=== PATIENT | male | born 1970 | race Caucasian/White ===

== ENCOUNTER 2023-05-03 13:07 | Inpatient (IN) ==
[2023-05-03] MEDS ORDERED: IOPAMIDOL 100 ML BOTTLE IV ONE (13:08)
[2023-05-03] MEDS ORDERED: 0.9 % SODIUM CHLORIDE 1,000 ML IV ONE (13:18)
[2023-05-03 14:11] LABS: Basophils # (Auto) 0.04 K/mcL (0.00-0.30); Basophils % (Auto) 0.5 % (0.0-2.0); Eosinophils # (Auto) 0.18 K/mcL (0.00-0.70); Eosinophils % (Auto) 2.3 % (0.0-7.0); Hematocrit 46.7 % (40.1-51.0); Hemoglobin 15.4 g/dL (13.7-17.5); Lymphocytes # (Auto) 1.92 K/mcL (1.50-4.80); Mean Cell Volume 83.1 fL (80.0-100.0); Mean Platelet Volume 11.5 fL (8.8-12.5); Monocytes % (Auto) 6.3 % (1.0-12.0); Neutrophils % (Auto) 66.3 % (38.0-78.0); Platelet Count 196 K/mcL (140-440); RBC 5.62 M/mcL (4.63-6.08); Red Cell Distribution Width 12.1 % (11.5-14.5)
[2023-05-03 14:42] LABS: Thyroid Stimulating Hormone 3.07 uIU/mL (0.27-5.01)
[2023-05-03] MEDS ORDERED: ASPIRIN 81 MG TAB.CHEW CHEWED ONE (15:02)
[2023-05-03 15:14] LABS: ALT/SGPT 16 U/L (<40); AST/SGOT 11 U/L (<40); Albumin/Globulin Ratio 1.5 (1.0-2.3); Alkaline Phosphatase 83 U/L (39-117); Bilirubin,Total 0.3 mg/dL (0.1-1.0); Blood Urea Nitrogen 16 mg/dL (6-20); Calcium 8.8 mg/dL (8.6-10.4); Carbon Dioxide 25 mmol/L (22-30); Chloride 102 mmol/L (96-108); Globulin 2.7 gm/dL (2.2-3.7); Glomerular Filtration Rate 101; Glucose 297 mg/dL (70-105)
[2023-05-03 15:52] LABS: ABG Methemoglobin 0.2 % (0.4-1.5); Total Hemoglobin 15.3 gm/Dl (13.5-16.5); VBG Base Excess -1 (-2-3); VBG HCO3 25.3 mmol/L (24.0-28.0); VBG Oxygen Saturation 77.7 % (40.0-70.0); VBG PCO2 50.1 mmHg (41.0-51.0); VBG PH 7.32 U (7.32-7.42); VBG PO2 47.2 mmHg (25.0-40.0); VBG Total CO2 26.8 mmol/L (25.0-29.0)
[2023-05-03] MEDS ORDERED: INSULIN REGULAR, HUMAN 1 UNIT/0.01 ML UNIT IV ONE (15:53)
[2023-05-03] MEDS ORDERED: CLOPIDOGREL 300 MG TABLET PO ONE (16:10)
[2023-05-03] MEDS ORDERED: DEXTROSE 31 GM ORAL.SUSP PO PRN (17:24)
[2023-05-03] MEDS ORDERED: POTASSIUM CHLORIDE 40 MEQ in DEXTROSE 5% IN WATER 500 ML IV PRN (17:24)
[2023-05-03] MEDS ORDERED: 0.9 % SODIUM CHLORIDE 1,000 ML IV SCH (17:24)
[2023-05-03] MEDS ORDERED: ONDANSETRON 4 MG/2 ML VIAL IV PRN (17:24)
[2023-05-03] MEDS ORDERED: POTASSIUM CHLORIDE 20 MEQ TABLET PO PRN ×2 (17:24)
[2023-05-03] MEDS ORDERED: SENNOSIDES 1 TABLET PO PRN (17:24)
[2023-05-03] MEDS ORDERED: hydrALAZINE 20 MG/ML VIAL IV PRN (17:24)
[2023-05-03] MEDS ORDERED: INSULIN LISPRO 1 UNIT/0.01 ML UNIT SQ SCH (17:24)
[2023-05-03] MEDS ORDERED: MAGNESIUM SULFATE 2 GM/50 ML BAG IV PRN (17:24)
[2023-05-03] MEDS ORDERED: IPRATROPIUM/ALBUTEROL 3 ML AMPUL.NEB NEB PRN (17:24)
[2023-05-03] MEDS ORDERED: DEXTROSE 50% 50 ML VIAL IV PRN (17:24)
[2023-05-03] MEDS ORDERED: POLYETHYLENE GLYCOL 3350 17 GM PACKET PO PRN (17:24)
[2023-05-03] MEDS ORDERED: ACETAMINOPHEN 325 MG TABLET PO PRN (17:24)
[2023-05-03 17:30] LABS: Appearance,Urine Clear (Clear); Bacteria,Urine 0 /hpf ({null, 0}); Bilirubin,Urine Negative (Negative); Color,Urine Yellow; Culture Indicated,Urine No; Glucose,Urine (UA) 500 mg/dL (Negative); Ketones,Urine Trace mg/dL (Negative); Leukocyte Esterase,Urine Negative /uL (Negative); Nitrate,Urine Negative (Negative); Protein,Urine 100 mg/dL (Negative); Specific Gravity,Urine 1.015 (1.000-1.035); Urine Blood Trace ery/mcL (Negative); Urine RBC 0 /hpf (0-3); Urine Squamous Epithelial Cell 0 /hpf (0-4); Urine WBC 1 /hpf (0-4); Urobilinogen,Urine Normal
[2023-05-03 18:44] LABS: Hemoglobin A1C 12.2 % Hgb (4.0-6.0)
[2023-05-03] MEDS: INSULIN LISPRO 1 UNIT/0.01 ML UNIT SQ SCH (20:39)
[2023-05-03] MEDS: ATORVASTATIN 40 MG TABLET PO SCH (21:03)
[2023-05-03] MEDS: FAMOTIDINE 20 MG TABLET PO SCH (21:03)
[2023-05-04] MEDS: INSULIN LISPRO 1 UNIT/0.01 ML UNIT SQ SCH ×5 (00:04→21:30)
[2023-05-04 06:38] LABS: ALT/SGPT 12 U/L (<40); AST/SGOT 14 U/L (<40); Albumin 3.7 gm/dL (3.2-5.2); Albumin/Globulin Ratio 1.4 (1.0-2.3); Alkaline Phosphatase 75 U/L (39-117); Bilirubin,Direct < 0.2 mg/dL (0-0.3); Bilirubin,Total 0.3 mg/dL (0.1-1.0); Blood Urea Nitrogen 14 mg/dL (6-20); Calcium 8.8 mg/dL (8.6-10.4); Carbon Dioxide 22 mmol/L (22-30); Chloride 104 mmol/L (96-108); Globulin 2.6 gm/dL (2.2-3.7); Glomerular Filtration Rate 107; Glucose 159 mg/dL (70-105); Lactate Dehydrogenase 118 U/L (135-225); Phosphorous 4.2 mg/dL (2.5-4.5); Triglycerides 299 mg/dL (<150); Uric Acid 6.6 mg/dL (2.5-8.0)
[2023-05-04] MEDS: CLOPIDOGREL 75 MG TABLET PO SCH (09:00)
[2023-05-04] MEDS: ENOXAPARIN 40 MG/0.4 ML SYRINGE SQ SCH (09:00)
[2023-05-04] MEDS: ASPIRIN 81 MG TAB.CHEW CHEWED SCH (09:00)
[2023-05-04] MEDS: FAMOTIDINE 20 MG TABLET PO SCH ×2 (09:00→21:02)
[2023-05-04] MEDS: ATORVASTATIN 40 MG TABLET PO SCH (21:02)
[2023-05-05] MEDS: CLOPIDOGREL 75 MG TABLET PO SCH (08:56)
[2023-05-05] MEDS: ASPIRIN 81 MG TAB.CHEW CHEWED SCH (08:56)
[2023-05-05] MEDS: ENOXAPARIN 40 MG/0.4 ML SYRINGE SQ SCH (08:56)
[2023-05-05] MEDS: FAMOTIDINE 20 MG TABLET PO SCH (08:56)
[2023-05-05] MEDS: INSULIN LISPRO 1 UNIT/0.01 ML UNIT SQ SCH ×2 (08:56→11:49)
[2023-05-06] MEDS ORDERED: FLUZONE QUAD QS2023-24/PF 60 MCG/0.5 ML SYRINGE IM ONE (09:00)
[2023-05-06] MEDS ORDERED: PNEUMOCOCCAL 23-VAL P-SAC VAC 0.5 ML SYRINGE IM ONE (09:00)
== END 2023-05-05 13:00 | disposition home or self-care (01) | DRG 66 ==
LOC: ED 13:07 → ICU 17:17
PROVIDERS: ADMIT Internal Medicine; ATTEND Internal Medicine